=== PATIENT | male | born 1975 | race Caucasian/White ===

== ENCOUNTER 2022-04-05 12:00 | Outpatient (CLI) | payer BC | END 2022-04-05 12:01 | disposition home or self-care (01) | LOC: CSHCT 12:00 | PROVIDERS: ATTEND Otolaryngology Plastic Surgery within the Head & Neck | DX: H71.92 Unspecified cholesteatoma, left ear (principal); H90.6 Mixed conductive and sensorineural hearing loss, bilateral; H74.8X3 Other specified disorders of middle ear and mastoid, bilateral | CPT/HCPCS: 70480 ==